=== PATIENT | female | born 2000 | race Caucasian/White ===

== ENCOUNTER 2022-06-21 14:16 | Emergency (ER) | payer BC ==
[2022-06-21 14:32] VITALS: BP 132/68; PULSE 83; RESP 20; TEMP 98.7; BMI 24.1
== END 2022-06-21 15:06 | disposition home or self-care (01) ==
LOC: FER 14:16
DX: L25.9 Unspecified contact dermatitis, unspecified cause (principal)
CPT/HCPCS: 99281-25

== ENCOUNTER 2023-02-19 10:37 | Emergency (ER) | payer BC ==
[2023-02-19 10:46] VITALS: BP 117/87; PULSE 84; RESP 18; TEMP 98.7; BMI 26.6
== END 2023-02-19 12:20 | disposition home or self-care (01) ==
LOC: FER 10:37
DX: T19.2XXA Foreign body in vulva and vagina, initial encounter (principal)
CPT/HCPCS: 81003; 84703; 87086; 99283-25

== ENCOUNTER 2024-02-10 20:45 | Emergency (ER) | payer BC, OTHER ==
[2024-02-10 20:55] VITALS: BP 108/72; PULSE 89; RESP 19; TEMP 98.2; BMI 25.7
[2024-02-10 22:01] LABS: URINE APPEARANCE CLEAR; URINE BILIRUBIN NEGATIVE (NEGATIVE); URINE COLOR YELLOW; URINE GLUCOSE (UA) NEGATIVE (NEGATIVE); URINE KETONE NEGATIVE (NEGATIVE); URINE LEUK ESTERASE NEGATIVE (NEGATIVE); URINE NITRITE NEGATIVE (NEGATIVE); URINE PROTEIN NEGATIVE (NEGATIVE); URINE UROBILINOGEN 0.2 mg/dL (0.2-1.0)
[2024-02-10 22:52] LABS: HCG,QUALITATIVE URINE Negative
== END 2024-02-10 23:05 | disposition home or self-care (01) ==
LOC: JER 20:45
DX: N93.9 Abnormal uterine and vaginal bleeding, unspecified (principal); R10.2 Pelvic and perineal pain; R11.0 Nausea
CPT/HCPCS: 81003; 84703; 87086; 99283-25